=== PATIENT | female | born 1975 | race Caucasian/White ===

== ENCOUNTER 2016-11-11 13:53 | Emergency (ER) | payer OTHER ==
[~2016-11-11] VITALS: Ht 172.7 cm; Wt 72.0 kg
[2016-11-11 13:57] VITALS: BP 110/62
== END 2016-11-11 15:18 | disposition home or self-care (01) ==
LOC: EDUNIT# 13:53 → ED 13:55
DX: K04.7 Periapical abscess without sinus (principal); F17.210 Nicotine dependence, cigarettes, uncomplicated
CPT/HCPCS: 99282; 99283